=== PATIENT | male | born 1935 | race Caucasian/White ===

== ENCOUNTER → 2017-12-24 | Outpatient (CLI) | payer MEDICARE, OTHER | END | disposition home or self-care (01) | LOC: PCVCCLINIC 14:18 | DX: I10 Essential (primary) hypertension (principal); I25.10 Atherosclerotic heart disease of native coronary artery without angina pectoris | CPT/HCPCS: 36415 ==

== ENCOUNTER → 2019-01-07 | Outpatient (CLI) | payer MEDICARE, OTHER | END | disposition home or self-care (01) | LOC: PCVCCLINIC 11:05 | PROVIDERS: ATTEND Internal Medicine Cardiovascular Disease | DX: I25.10 Atherosclerotic heart disease of native coronary artery without angina pectoris (principal); I10 Essential (primary) hypertension; E78.00 Pure hypercholesterolemia, unspecified; E11.9 Type 2 diabetes mellitus without complications; Z79.4 Long term (current) use of insulin; Z79.82 Long term (current) use of aspirin | CPT/HCPCS: 93005; G0463 ==

== ENCOUNTER → 2019-07-18 | Outpatient (CLI) | payer MEDICARE, OTHER ==
--- NOTE | 2019-07-18 10:33 | PCVCIMAG ---
APPROVED REPORT Study performed: 07/18/2019 09:32:17 EXAM: Comprehensive 2D, Doppler, and color-flow Echocardiogram Patient Location: Echo lab Status: routine BSA: 2.13 HR: 65 bpmBP: 144/76 mmHg Rhythm: NSR, RBBB Other Information Study Quality: Adequate Risk Factors: Cardiac Risk Factors: HTN, DM Indications CAD RBBB 2D Dimensions IVSd: 12.48 (7-11mm) LVDd: 37.60 mm PWd: 11.86 (7-11mm)Ascending Ao: 36.12 (22-36mm) LVDs: 27.42 (25-40mm) Left Atrium: 47.95 (27-40mm) Aortic Root: 31.08 mm LV Single Plane 4CH: 62.82 % LV Single Plane 2CH: 59.84 % Biplane EF: 62.3 % Volumes Left Atrial Volume (Systole) Single Plane 4CH: 91.06 mLSingle Plane 2CH: 85.85 mL LA ESV Index: 43.00 mL/m2 Aortic Valve AoV Peak Rakesh.: 1.37 m/s AO Peak Gr.: 7.52 mmHgLVOT Max P.24 mmHg LVOT Max V: 1.03 m/s Mitral Valve E/A Ratio: 0.8 MV Decel. Time: 300.49 ms MV E Max Rakesh.: 0.71 m/s MV A Rakesh.: 0.85 m/s IVRT: 107.27 ms Pulmonary Valve PV Peak Arkesh.: 0.82 m/sPV Peak Gr.: 2.70 mmHg Pulmonary Vein P Vein S: 0.31 m/sP Vein A: 0.35 m/s P Vein D: 0.43 m/sP Vein A Dur.: 128.0 msec P Vein S/D Ratio: 0.72 Tricuspid Valve TR Peak Rakesh.: 3.30 m/s TR Peak Gr.: 43.50 mmHg Left Ventricle The left ventricle is normal size. There is normal LV segmental wall motion. Mild concentric left ventricular hypertrophy. Left ventricular systolic function is normal. The left ventricular ejection fraction is within the normal range. LVEF is 60%. Grade I - abnormal relaxation pattern. Right Ventricle The right ventricle is normal size. The right ventricular systolic function is normal. Atria Left atrium is moderately dilated. The right atrium size is normal. Aortic Valve The aortic valve is normal in structure. No aortic regurgitation is present. There is no aortic valvular stenosis. Mitral Valve The mitral valve is normal in structure. Mild mitral regurgitation. No evidence of mitral valve stenosis. Tricuspid Valve The tricuspid valve is normal in structure. Mild tricuspid regurgitation with PAP of 45 mmHg. Pulmonic Valve The pulmonary valve is normal in structure. There is trace pulmonic valvular regurgitation. Great Vessels The aortic root is normal in size. IVC is normal in size and collapses >50% with inspiration. Pericardium There is no pericardial effusion. There is no pleural effusion. <Conclusion> The left ventricle is normal size. Mild concentric left ventricular hypertrophy. Left ventricular systolic function is normal. Grade I - abnormal relaxation pattern. The right ventricle is normal size. Left atrium is moderately dilated. The aortic valve is normal in structure. Mild mitral regurgitation. Mild tricuspid regurgitation with PAP of 45 mmHg.
== END | disposition home or self-care (01) ==
LOC: PCVCIMAG 09:49
PROVIDERS: ATTEND Internal Medicine Cardiovascular Disease
DX: I08.1 Rheumatic disorders of both mitral and tricuspid valves (principal); I25.10 Atherosclerotic heart disease of native coronary artery without angina pectoris; I10 Essential (primary) hypertension; E78.00 Pure hypercholesterolemia, unspecified; N28.9 Disorder of kidney and ureter, unspecified; E11.9 Type 2 diabetes mellitus without complications; Z79.82 Long term (current) use of aspirin
CPT/HCPCS: 93005; 93306; G0463